=== PATIENT | male | born 1990 ===

== ENCOUNTER 2021-10-25 00:54 | Emergency (ER) | payer SELFPAY ==
[2021-10-25 01:13] VITALS: BP 124/75
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
== END 2021-10-25 18:56 | disposition left against medical advice (07) ==
LOC: ED 00:54
DX: R45.851 Suicidal ideations (principal); J45.909 Unspecified asthma, uncomplicated; F17.200 Nicotine dependence, unspecified, uncomplicated
CPT/HCPCS: 99283

== ENCOUNTER 2021-10-31 08:03 | Emergency (ER) | payer SELFPAY ==
[2021-10-31] MEDS ORDERED: AMOXICILLIN/K CLAV 500/125MG TAB PO ONE (10:37)
[2021-10-31] MEDS ORDERED: IBUPROFEN 600 MG TAB PO ONE (10:37)
--- NOTE | 2021-10-31 11:10 | XRay Report ---
RIGHT ANKLE 3 VIEWS INDICATION: anknle injury. COMPARISON: None. IMPRESSION: There is severe diffuse soft tissue swelling. No acute osseous injury or significant stevenson int pathology is detected. Signer Name: Chava Fermin Jr, MD Signed: 10/31/2021 11:06 AM Workstation Name: [id number]
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
[2021-10-31 14:03] VITALS: BP 124/80
== END 2021-10-31 14:07 | disposition home or self-care (01) ==
LOC: ED 08:03
DX: S93.491A Sprain of other ligament of right ankle, initial encounter (principal); S20.319A Abrasion of unspecified front wall of thorax, initial encounter; J45.909 Unspecified asthma, uncomplicated; Z87.891 Personal history of nicotine dependence; Z72.89 Other problems related to lifestyle; Z79.899 Other long term (current) drug therapy; W50.3XXA Accidental bite by another person, initial encounter; Y93.89 Activity, other specified; Y92.89 Other specified places as the place of occurrence of the external cause; Y99.8 Other external cause status
CPT/HCPCS: 99284